=== PATIENT | female | born 1930 | race Caucasian/White ===

== ENCOUNTER 2018-05-09 11:38 | Inpatient (IN) ==
--- NOTE | 2018-05-09 12:26 | Emergency Department Note ---
Disposition Clinical Impression: Cellulitis, Knee swelling, Prepatellar abscess Disposition: Admitted As Inpatient Condition: Good Extremity Problem HPI - General Chief complaint: ED Extremity Problem,Nontraumatic Stated complaint: Cellulitis left leg Time Seen by Provider: 05/09/18 11:41 - History of Present Illness Pain Scale: 1 - Related Data Home Medications Medication Instructions Recorded Confirmed Digoxin [Lanoxin] 0.125 mg PO DAILY 08/22/16 05/09/18 Furosemide [Lasix] 20 mg PO DAILY 08/22/16 05/09/18 Losartan/HCTZ [Hyzaar 50-12.5 1 tab PO DAILY 08/22/16 05/09/18 Tablet] Metoprolol XL (24 HR) Succ [Toprol 150 mg PO DAILY 08/22/16 05/09/18 Xl] Potassium Chloride [Klor-Con 10] 10 meq PO DAILY 08/22/16 05/09/18 Tramadol HCl [Ultram] 50 mg PO BID PRN 08/22/16 05/09/18 Vit A/C/E AC/Znox/Cupric Oxide 1 each PO DAILY 09/05/16 05/09/18 [Eye Vitamin-Minerals Tablet] Warfarin Sodium [Coumadin] 6 mg PO 1800 05/09/18 05/09/18 Previous Rx's Medication Instructions Recorded Acetaminophen [Tylenol] 1,000 mg PO Q6HR PRN #0 tablet 09/05/16 Clindamycin [Cleocin] 300 mg PO TID 7 Days capsule 04/26/18 Allergies Allergy/AdvReac Type Severity Reaction Status Date / Time Penicillins AdvReac Rash Verified 05/09/18 13:57 spironolactone AdvReac Rash Verified 05/09/18 13:57 [From Aldactone] Past Medical History - Past Medical History Medical history: Reports: arthritis, CHF, coronary artery disease, GERD, glaucoma, hypertension Surgical history: Reports: , orthopedic, other Psychiatric history: Reports: no psych history - Social History Smoking Status: Never smoker Smokeless Tobacco Status: No Alcohol use: Reports: none Drug use: Reports: none Course Vital Signs Temperature 97.7 F 05/09/18 11:40 Pulse Rate 55 05/09/18 11:40 Respiratory Rate 16 05/09/18 11:40 Blood Pressure 143/76 05/09/18 11:40 O2 Sat by Pulse Oximetry 99 05/09/18 11:40 Temperature 97.8 F 05/09/18 16:47 Pulse Rate 61 05/09/18 16:47 Respiratory Rate 16 05/09/18 16:47 Blood Pressure 169/72 05/09/18 16:47 O2 Sat by Pulse Oximetry 97 05/09/18 16:47 Oxygen Delivery Oxygen Delivery Room Air Extremity Problem, Nontraumati - Lab Data Result diagrams: 05/09/18 12:16 05/09/18 12:16 Lab Results 05/09/18 05/09/18 05/09/18 Range/Units 12:16 12:16 12:16 WBC 7.7 (4.3-11.1) K/mcL RBC 3.06 L (3.82-4.97) M/mcL Hgb 9.7 L (11.5-15.4) g/dL Hct 29.4 L (35.3-44.9) % MCV 96.1 (83.0-100.0) fL MCH 31.7 (28.0-33.3) pg MCHC 33.0 (31.6-35.5) g/dL RDW 14.6 H (11.5-14.5) % Plt Count 312 (140-400) K/mcL MPV 9.3 L (9.4-12.4) fL Immature Gran % 0.4 (0-4) % Seg Neutrophils % 62.0 % Lymphocytes % 17.0 % Monocytes % 14.0 % Eosinophils % 6.2 % Basophils % 0.4 % Neutrophils # 4.8 (1.6-8.9) K/mcL Lymphocytes # 1.3 (0.6-4.6) K/mcL Monocytes # 1.1 (0.0-1.3) K/mcL Eosinophils # 0.5 (0.0-0.6) K/mcL Basophils # 0.0 (0.0-0.2) K/mcL ESR (0-15) mm/hr PT 21.9 H (9.4-12.1) Seconds INR 1.9 Sodium 136 (136-145) mEq/L Potassium 3.7 (3.5-5.1) mEq/L Chloride 101 (98-107) mEq/L Carbon Dioxide 29 (23-29) mEq/L BUN 17 (8-23) mg/dL Creatinine 0.77 (0.60-1.20) mg/dL Est GFR ( Amer) > 60 (> 60) Est GFR (Non-Af Amer) > 60 (> 60) BUN/Creatinine Ratio 22 (6-26) Glucose 102 (70-105) mg/dL Calculated Osmolality 284 (280-300) Calcium 9.6 (8.6-10.3) mg/dL C-Reactive Protein 27 H (Less than 10) mg/L Digoxin (0.8-2.0) ng/mL 05/09/18 05/09/18 Range/Units 12:16 12:16 WBC (4.3-11.1) K/mcL RBC (3.82-4.97) M/mcL Hgb (11.5-15.4) g/dL Hct (35.3-44.9) % MCV (83.0-100.0) fL MCH (28.0-33.3) pg MCHC (31.6-35.5) g/dL RDW (11.5-14.5) % Plt Count (140-400) K/mcL MPV (9.4-12.4) fL Immature Gran % (0-4) % Seg Neutrophils % % Lymphocytes % % Monocytes % % Eosinophils % % Basophils % % Neutrophils # (1.6-8.9) K/mcL Lymphocytes # (0.6-4.6) K/mcL Monocytes # (0.0-1.3) K/mcL Eosinophils # (0.0-0.6) K/mcL Basophils # (0.0-0.2) K/mcL ESR 91 H (0-15) mm/hr PT (9.4-12.1) Seconds INR Sodium (136-145) mEq/L Potassium (3.5-5.1) mEq/L Chloride (98-107) mEq/L Carbon Dioxide (23-29) mEq/L BUN (8-23) mg/dL Creatinine (0.60-1.20) mg/dL Est GFR ( Amer) (> 60) Est GFR (Non-Af Amer) (> 60) BUN/Creatinine Ratio (6-26) Glucose (70-105) mg/dL Calculated Osmolality (280-300) Calcium (8.6-10.3) mg/dL C-Reactive Protein (Less than 10) mg/L Digoxin 1.1 (0.8-2.0) ng/mL Attestation Statement - Attestation Attestation: I examined this patient and my medical decision making was reviewed with the Resident Physician. I agree with the documented findings, disposition and treatment plan as described except to the extent set forth below. We independently had [id number] contact with the patient. Resident Phoenix Finn Patient referred from orthopedic outpatient visit for evaluation of prepatellar abscess drainage as well as concern for cellulitis in the left lower extremity. Patient had a previous fall on Coumadin with elevated INR and significant leg swelling. Patient's leg is now red from the mid thigh to the lower leg. It is not erythematous and only has minimal blanching. Patient does not have any fevers chills or systemic symptoms. She is also complaining of a rash to the but which is multifocal in nature and possibly more consistent with a dermatitis or candidal infection. The patient does have multiple allergies to medications as well as 2 different tapes. Patient has been keeping her leg wrapped with a [place] wrap and before that a different sort of wrap. Family is concerned about possible allergic reaction which given her lack of erythema to the leg is a possibility. The prepatellar bursa itself does appear to be inflamed and have some mild purulent drainage. The area had previously been diagnosed with blister over this area. Please see resident note for further details and disposition.
[2018-05-09 12:40] LABS: Basophils % 0.4 %; Eosinophils # 0.5 K/mcL (0.0-0.6); Eosinophils % 6.2 %; Hematocrit 29.4 % (35.3-44.9); Hemoglobin 9.7 g/dL (11.5-15.4); Immature Granulocytes % 0.4 % (0-4); Lymphocytes # 1.3 K/mcL (0.6-4.6); Mean Corpuscular Hemoglobin 31.7 pg (28.0-33.3); Mean Corpuscular Volume 96.1 fL (83.0-100.0); Mean Platelet Volume 9.3 fL (9.4-12.4); Monocytes # 1.1 K/mcL (0.0-1.3); Neutrophils # 4.8 K/mcL (1.6-8.9); Platelet Count 312 K/mcL (140-400); Red Blood Count 3.06 M/mcL (3.82-4.97); Red Cell Distribution Width 14.6 % (11.5-14.5)
[2018-05-09 12:47] LABS: INR 1.9; Prothrombin Time 21.9 Seconds (9.4-12.1)
[2018-05-09 12:54] LABS: BUN/Creatinine Ratio 22 (6-26); Blood Urea Nitrogen 17 mg/dL (8-23); Calcium 9.6 mg/dL (8.6-10.3); Carbon Dioxide 29 mEq/L (23-29); Chloride 101 mEq/L (98-107); Glucose 102 mg/dL (70-105); Osmolality,Calculated 284 (280-300); Potassium 3.7 mEq/L (3.5-5.1); Sodium 136 mEq/L (136-145); eGFR For Non-African Americans > 60 (> 60)
--- NOTE | 2018-05-09 13:04 | Emergency Department Note ---
Disposition Clinical Impression: Knee swelling, Prepatellar abscess Cellulitis Qualifiers: Site of cellulitis: extremity Site of cellulitis of extremity: lower extremity Laterality: left Qualified Code(s): L03.116 - Cellulitis of left lower limb Disposition: Admitted As Inpatient Condition: Good Referrals: Cole Joya MD [Primary Care Provider] - Forms: ED Satisfaction Letter Time of Disposition: 13:59 General Adult HPI - General Chief complaint: ED Extremity Problem,Nontraumatic Stated complaint: Cellulitis left leg Time Seen by Provider: 05/09/18 11:41 Source: patient, family Limitations: no limitations Nursing Notes Reviewed: Yes Vital Signs Reviewed: Yes - History of Present Illness HPI Narrative: 87-year-old female presenting for left knee swelling and concern for infection. Patient states approximately 2 weeks ago she was seen here for an open fracture of the left finger. This was due to a fall. She was also diagnosed with cellulitis and placed on clindamycin. Patient went to orthopedics for a follow-up for her left finger when they noticed the left knee was very swollen, red and draining. They were concerned about possible infection and possible need for drainage and sent her here for further evaluation and admission. Patient denies any other concerns or complaints. States she has been able to walk on the knee without difficulty. Denies any fevers, chest pain, shortness of breath, nausea or abdominal pain. Pain Scale: 1 - Related Data Home Medications Medication Instructions Recorded Confirmed Digoxin [Lanoxin] 0.125 mg PO DAILY 08/22/16 09/05/16 Furosemide [Lasix] 20 mg PO DAILY 08/22/16 09/05/16 Losartan/HCTZ [Hyzaar 50-12.5 1 tab PO DAILY 08/22/16 09/05/16 Tablet] Metoprolol XL (24 HR) Succ [Toprol 150 mg PO DAILY 08/22/16 09/05/16 Xl] Potassium Chloride [Klor-Con 10] 10 meq PO DAILY 08/22/16 09/05/16 Tramadol HCl [Ultram] 50 mg PO BID PRN 08/22/16 09/05/16 Warfarin [Coumadin] 5 mg PO 1800 08/22/16 09/05/16 Vit A/C/E AC/Znox/Cupric Oxide 1 each PO DAILY 01/16/17 01/16/17 [Eye Vitamin-Minerals Tablet] Previous Rx's Medication Instructions Recorded Acetaminophen [Tylenol] 1,000 mg PO Q6HR PRN #0 tablet 09/05/16 HYDROcodone/Acet 5/325 mg [[place] 1 tab PO Q6HR PRN #15 tablet 10/14/16 5-325 mg] Clindamycin [Cleocin] 300 mg PO TID 7 Days capsule 04/26/18 HYDROcodone/Acet 5/325 mg [[place] 1 tab PO Q6H PRN 4 Days #15 tab 04/26/18 5-325 mg] Allergies Allergy/AdvReac Type Severity Reaction Status Date / Time Penicillins AdvReac Rash Verified 05/09/18 13:57 spironolactone AdvReac Rash Verified 05/09/18 13:57 [From Aldactone] All systems ED: reviewed and negative except as stated. Constitutional: Denies: fever, chills, weakness Eyes: Reports: as per HPI ENT ED: Reports: as per HPI Cardiovascular: Denies: chest pain, palpitations Respiratory: Denies: cough, dyspnea, wheezes Gastrointestinal: Denies: abdominal pain, nausea, vomiting Genitourinary: Reports: as per HPI Musculoskeletal: Reports: as per HPI Integumentary: Reports: as per HPI Neurological: Denies: weakness, numbness, paresthesias Psychiatric: Reports: as per HPI Endocrine: Reports: as per HPI Hematological/Lymphatic: Reports: as per HPI Allergic/Immunologic: Reports: as per HPI Past Medical History - Past Medical History Attestation: Yes The following information was validated with the patient. Medical history: Reports: arthritis, CHF, coronary artery disease, GERD, glaucoma, hypertension Surgical history: Reports: , orthopedic, other Psychiatric history: Reports: no psych history - Social History Smoking Status: Never smoker Smokeless Tobacco Status: No Alcohol use: Reports: none Drug use: Reports: none Physical Exam - General Limitations: no limitations General appearance: alert, in no apparent distress - Head Head exam: atraumatic, normocephalic, normal inspection - Eye Eye exam: Present: normal appearance. Absent: scleral icterus, conjunctival injection - ENT ENT exam: normal exam, mucous membranes moist - Neck Neck exam: Present: normal inspection, full ROM. Absent: tenderness, meningismus - Chest Chest inspection: Present: normal inspection, symmetric chest wall rise. Absent : tenderness, rash - Respiratory Respiratory exam: Present: normal lung sounds bilaterally. Absent: respiratory distress, wheezes - Cardiovascular Cardiovascular exam: Present: normal rhythm, normal heart sounds - Abdominal Exam Abdominal exam: Present: soft, Non-Tender. Absent: distention, guarding, rebound - Extremities Exam Extremities exam: Present: full ROM, other (Bilateral lower extremities neurovascularly intact. Left knee swollen, red with multiple open wounds and active serosanguineous drainage. Redness radiates from the down the left lower extremity. It is blanchable. Nontender and not warm to the touch.) - Neurological Exam Neurological exam: Present: alert, oriented X3 - Psychiatric Psychiatric exam: Present: normal affect, normal mood - Skin Skin exam: Present: warm, intact Course Course Narrative: 87-year-old female sent by orthopedics for admission for possible drainage of the left knee. Patient is alert and oriented 3 in the room with stable vital signs. Afebrile. Physical exam shows a swollen left knee with serous a nearest drainage and multiple superficial abrasions. Basic laboratory analysis including CBC, BMP, blood cultures, PT/INR and digoxin level obtained. Patient is currently on Coumadin. I spoke with Dr. Medel who sent the patient over. He would like us to also add an ESR and CRP. Due to concern for cellulitis we will also provide the patient 1 dose of vancomycin in the emergency department. Patient disposition most likely admission the pending results. Patient agrees with this plan. - Reevaluation(s) Reevaluation #1: Patient's laboratory analysis shows elevated ESR but otherwise at baseline for patient. Patient remains alert and oriented times dining room table vital signs. I spoke with interventional radiology who is aware of the patient will like us to place a consult the computer. They will evaluate the patient after they are finished the procedure they are in now. I spoke with the hospitalist recreational aide Dr. Cole who agrees to accept the patient at this time. Vital Signs Temperature 97.7 F 05/09/18 11:40 Pulse Rate 55 05/09/18 11:40 Respiratory Rate 16 05/09/18 11:40 Blood Pressure 143/76 05/09/18 11:40 O2 Sat by Pulse Oximetry 99 05/09/18 11:40 Temperature 97.7 F 05/09/18 12:08 Pulse Rate 68 05/09/18 13:28 Respiratory Rate 18 05/09/18 13:28 Blood Pressure 131/55 05/09/18 13:28 O2 Sat by Pulse Oximetry 97 05/09/18 13:28 Oxygen Delivery Oxygen Delivery Room Air Medical Decision Making - Lab Data Result diagrams: 05/09/18 12:16 05/09/18 12:16 Lab Results 05/09/18 05/09/18 05/09/18 Range/Units 12:16 12:16 12:16 WBC 7.7 (4.3-11.1) K/mcL RBC 3.06 L (3.82-4.97) M/mcL Hgb 9.7 L (11.5-15.4) g/dL Hct 29.4 L (35.3-44.9) % MCV 96.1 (83.0-100.0) fL MCH 31.7 (28.0-33.3) pg MCHC 33.0 (31.6-35.5) g/dL RDW 14.6 H (11.5-14.5) % Plt Count 312 (140-400) K/mcL MPV 9.3 L (9.4-12.4) fL Immature Gran % 0.4 (0-4) % Seg Neutrophils % 62.0 % Lymphocytes % 17.0 % Monocytes % 14.0 % Eosinophils % 6.2 % Basophils % 0.4 % Neutrophils # 4.8 (1.6-8.9) K/mcL Lymphocytes # 1.3 (0.6-4.6) K/mcL Monocytes # 1.1 (0.0-1.3) K/mcL Eosinophils # 0.5 (0.0-0.6) K/mcL Basophils # 0.0 (0.0-0.2) K/mcL ESR (0-15) mm/hr PT 21.9 H (9.4-12.1) Seconds INR 1.9 Sodium 136 (136-145) mEq/L Potassium 3.7 (3.5-5.1) mEq/L Chloride 101 (98-107) mEq/L Carbon Dioxide 29 (23-29) mEq/L BUN 17 (8-23) mg/dL Creatinine 0.77 (0.60-1.20) mg/dL Est GFR ( Amer) > 60 (> 60) Est GFR (Non-Af Amer) > 60 (> 60) BUN/Creatinine Ratio 22 (6-26) Glucose 102 (70-105) mg/dL Calculated Osmolality 284 (280-300) Calcium 9.6 (8.6-10.3) mg/dL Digoxin (0.8-2.0) ng/mL 05/09/18 05/09/18 Range/Units 12:16 12:16 WBC (4.3-11.1) K/mcL RBC (3.82-4.97) M/mcL Hgb (11.5-15.4) g/dL Hct (35.3-44.9) % MCV (83.0-100.0) fL MCH (28.0-33.3) pg MCHC (31.6-35.5) g/dL RDW (11.5-14.5) % Plt Count (140-400) K/mcL MPV (9.4-12.4) fL Immature Gran % (0-4) % Seg Neutrophils % % Lymphocytes % % Monocytes % % Eosinophils % % Basophils % % Neutrophils # (1.6-8.9) K/mcL Lymphocytes # (0.6-4.6) K/mcL Monocytes # (0.0-1.3) K/mcL Eosinophils # (0.0-0.6) K/mcL Basophils # (0.0-0.2) K/mcL ESR 91 H (0-15) mm/hr PT (9.4-12.1) Seconds INR Sodium (136-145) mEq/L Potassium (3.5-5.1) mEq/L Chloride (98-107) mEq/L Carbon Dioxide (23-29) mEq/L BUN (8-23) mg/dL Creatinine (0.60-1.20) mg/dL Est GFR ( Amer) (> 60) Est GFR (Non-Af Amer) (> 60) BUN/Creatinine Ratio (6-26) Glucose (70-105) mg/dL Calculated Osmolality (280-300) Calcium (8.6-10.3) mg/dL Digoxin 1.1 (0.8-2.0) ng/mL
[2018-05-09 14:57] LABS: C-Reactive Protein 27 mg/L (Less than 10)
[2018-05-09] MEDS ORDERED: Naloxone 0.4 MG/ML INJ IVP PRN (16:58)
--- NOTE | 2018-05-09 17:04 | Internal Med History&Physical ---
Date of Encounter: 05/09/18 Time of Encounter: 16:45 Internal Medicine - H&P: HPI Chief complaint: Left leg redness and swelling Admitted From: Emergency Dept History of present illness: Ms. Granados is a 87 year old female patient with history of coronary artery disease,, atrial fibrillation CHF, hypertension who was sent to the ER by her orthopedics doctor for swelling and redness involving the left knee and [place]acon. Patient had fallen earlier this month and developed swelling and hematoma in her left knee. She also injured her left ring finger and was being seen at orthopedics clinic for that. One week back she noticed some redness around her knee and was placed on antibiotics. Despite taking her antibiotics as prescribed, her swelling continued to worsen. She has also been developing blisters that were draining around her left knee. As such she was sent to the ER for evaluation. She denies any fevers or chills. She does have some discomfort and pain in her left knee and chacon. Patient was on clindamycin as outpatient and has been taking it as prescribed. Past Med Surg Social Fam HX - Past Medical History Attestation: Yes The following information was validated with the patient. Source: patient Medical history: arthritis, atrial fibrillation, CHF, coronary artery disease, GERD, glaucoma, hypertension Additional medical history: Paroxysmal atrial fibrillation. anticiagulant custodial use. open nondisplaced fracture of middle phalanx of left ring finger. displaced fracture of proximal phalanx of left middle finger Psychiatric history: no psych history - Past Surgical History Surgical History: , orthopedic, other Additional surgical history: ankle surgery. left eye. heart cath - Social History Smoking Status: Never smoker Smokeless Tobacco Status: No Alcohol use: none Drug use: none Internal Medicine - H&P: Meds Digoxin [Lanoxin] 0.125 mg PO DAILY 08/22/16 [History] Furosemide [Lasix] 20 mg PO DAILY 08/22/16 [History] Losartan/HCTZ [Hyzaar 50-12.5 Tablet] 1 tab PO DAILY 08/22/16 [History] Metoprolol XL (24 HR) Succ [Toprol Xl] 150 mg PO DAILY 08/22/16 [History] Potassium Chloride [Klor-Con 10] 10 meq PO DAILY 08/22/16 [History] Tramadol HCl [Ultram] 50 mg PO BID PRN 08/22/16 [History] Acetaminophen [Tylenol] 1,000 mg PO Q6HR PRN #0 tablet 09/05/16 [Rx] Vit A/C/E AC/Znox/Cupric Oxide [Eye Vitamin-Minerals Tablet] 1 each PO DAILY [History] Clindamycin [Cleocin] 300 mg PO TID 7 Days capsule 04/26/18 [Rx] Warfarin Sodium [Coumadin] 6 mg PO 1800 05/09/18 [History] 3 Allergy/AdvReac Type Severity Reaction Status Date / Time Penicillins AdvReac Rash Verified 05/09/18 13:57 spironolactone AdvReac Rash Verified 05/09/18 13:57 [From Aldactone] All Systems PM: A 10-system review of systems was performed and is negative for pertinent findings except as documented above in the HPI. - Constitutional Constitutional: no chills, no fever(s), no night sweats - EENT Eyes: no change in vision, no discharge, no pain, no photophobia Ears: no ear discharge, no ear pain, no tinnitus Nose, mouth and throat: no dysphagia, no nasal discharge, no neck pain, no sore throat - Cardiovascular Cardiovascular ROS IM: no chest pain, no diaphoresis, no dyspnea, no lightheadedness, no palpitations, no syncope - Respiratory Respiratory: no cough, no dyspnea, no wheezing, no excessive phlegm production - Gastrointestinal Gastrointestinal: no abdominal pain, no diarrhea, no hematemesis, no hematochezia, no melena, no nausea, no vomiting - Genitourinary Genitourinary: no change in urinary stream, no dysuria, no flank pain, no hematuria - Musculoskeletal Musculoskeletal ROS IM: joint swelling, no numbness, no tingling - Integumentary Integumentary IM: erythema, no rash, no unusual bruising - Neurological Neurological ROS: no confusion, no convulsions, no focal weakness, no numbness, no tingling, no tremor(s) - Hematologic/Lymphatic Hematologic/Lymphatic: no easy bruising - Constitutional Vitals: Temp Pulse Resp BP Pulse Ox 97.8 F 61 16 169/72 97 05/09/18 16:47 05/09/18 16:47 05/09/18 16:47 05/09/18 16:47 05/09/18 16:47 General appearance: Present: cooperative, A&O X 3, answers questions appropriately Exam: . - Neck Neck exam general surgery: Present: supple, trachea midline. Absent: lymphadenopathy - Respiratory Respiratory exam: Present: CTAB. Absent: accessory muscle use, rales, rhonchi, wheezes - Cardiovascular Cardiovascular exam: Present: irregular rhythm, +S1, +S2. Absent: diastolic murmur, gallop, rubs, systolic murmur - GI/Abdominal GI/Abdominal exam: Present: normal bowel sounds, soft, no peritoneal signs. Absent: distended, tenderness - Extremities Exam Extremities exam: Present: joint swelling (Left knee), warm, radial pulses palpable and symmetrical. Absent: calf tenderness, cyanotic, pedal edema - Neurological Exam Neurological exam: Present: CN II-XII intact, oriented X3, no focal deficits. Absent: facial droop, speech deficit - Skin Skin exam: Present: dry, erythema (Erythema involving the left lower extremity extending from the lower part of the thigh down to the ankle), intact Internal Med - H&P Results - Labs CBC & Chem 7: 05/09/18 12:16 05/09/18 12:16 - Assessment and plan (1) Cellulitis Current Visit: Yes Status: Acute Assessment and plan: Cellulitis of the left lower extremity. Failed outpatient antibiotic treatment. Will place patient in the hospital and treat with intravenous antibiotics. Orthopedics has been consulted. We will follow recommendations. Moderate risk for complications. Qualifiers: Site of cellulitis: extremity Site of cellulitis of extremity: lower extremity Laterality: left Qualified Code(s): L03.116 - Cellulitis of left lower limb (2) Atrial fibrillation Current Visit: Yes Status: Chronic Assessment and plan: Rate controlled. Continue digoxin. Patient is on Coumadin. Will hold Coumadin for now and resume after I&D. INR is 1.9. Qualifiers: Atrial fibrillation type: chronic Qualified Code(s): I48.2 - Chronic atrial fibrillation (3) Coronary artery disease Current Visit: Yes Status: Chronic Assessment and plan: Continue home medications. Not having any chest pain at this time Qualifiers: Coronary Disease-Associated Artery/Lesion type: [place] artery [place] vs. transplanted heart: [place] heart Associated angina: without angina Qualified Code(s): I25.10 - Atherosclerotic heart disease of [place] coronary artery without angina pectoris (4) Knee swelling Current Visit: Yes Status: Acute Assessment and plan: Left knee swelling with hematoma per CT scan done earlier this month. Discussed with interventional radiology. Recommend another CT scan to look for Evolution of hematoma and also location of abscess. They recommend incision and drainage of the abscesses closer to the skin. (5) Displaced fracture of phalanx of left ring finger Current Visit: Yes Status: Acute Assessment and plan: Orthopedics will follow patient during her hospital stay here. Qualifiers: Encounter type: initial encounter Fracture type: open Phalanx: middle Qualified Code(s): S62.625B - Displaced fracture of middle phalanx of left ring finger, initial encounter for open fracture - Time Spent With Patient Total time spent is greater than 50% in coordination of care (as documented) at patient's floor/unit and/or counseling patient:
[2018-05-09] MEDS: Cefepime HCl 2,000 MG in Water for inj. (sterile) 20 ML 20 ML IVP SCH (18:21)
[2018-05-09] MEDS: traMADol 50 MG TABLET PO PRN ×2 (18:22→21:35)
[2018-05-09] MEDS: Acetaminophen 325 MG TABLET PO PRN (18:25)
[2018-05-09] MEDS: Lactobacillus 1 EACH CAP.SPRINK PO SCH (21:35)
[2018-05-10] MEDS: Cefepime HCl 2,000 MG in Water for inj. (sterile) 20 ML 20 ML IVP SCH (06:24)
[2018-05-10 07:02] LABS: BUN/Creatinine Ratio 21 (6-26); Blood Urea Nitrogen 15 mg/dL (8-23); Carbon Dioxide 24 mEq/L (23-29); Chloride 106 mEq/L (98-107); Glucose 89 mg/dL (70-105); Osmolality,Calculated 288 (280-300); Potassium 3.9 mEq/L (3.5-5.1); Sodium 139 mEq/L (136-145); eGFR For Non-African Americans > 60 (> 60)
[2018-05-10 08:17] LABS: Basophils % 0.1 %; Eosinophils # 0.4 K/mcL (0.0-0.6); Eosinophils % 5.5 %; Hematocrit 25.9 % (35.3-44.9); Hemoglobin 8.7 g/dL (11.5-15.4); Immature Granulocytes % 0.3 % (0-4); Lymphocytes # 1.4 K/mcL (0.6-4.6); Lymphocytes % 19.1 %; Mean Corpuscular HGB Conc 33.6 g/dL (31.6-35.5); Mean Corpuscular Volume 95.2 fL (83.0-100.0); Mean Platelet Volume 9.7 fL (9.4-12.4); Monocytes # 0.8 K/mcL (0.0-1.3); Monocytes % 10.6 %; Neutrophils # 4.8 K/mcL (1.6-8.9); Platelet Count 283 K/mcL (140-400); Red Blood Count 2.72 M/mcL (3.82-4.97); Red Cell Distribution Width 14.7 % (11.5-14.5); Segmented Neutrophils % 64.4 %
[2018-05-10] MEDS: Losartan/HCTZ 50-12.5 TABLET PO SCH (08:22)
[2018-05-10] MEDS: Lactobacillus 1 EACH CAP.SPRINK PO SCH ×2 (08:23→22:20)
[2018-05-10] MEDS: *HR* Digoxin 0.125 MG TABLET PO SCH (08:23)
[2018-05-10] MEDS: Metoprolol XL (24 HR) Succ 50 MG TAB.ER.24H PO SCH (08:23)
[2018-05-10] MEDS: (Vit A/C/E Ac/Znox/Cupric Oxide [Eye Vitamin-Minerals) PO SCH (08:23)
[2018-05-10] MEDS: Furosemide 20 MG TABLET PO SCH (08:23)
--- NOTE | 2018-05-10 10:04 | Internal Med Progress Note ---
Hospitalist Progress Note - Encounter Date of Encounter: 05/10/18 Time of Encounter: 10:02 - Subjective Interval History: Patient developed a rash overnight after she received antibiotics. No reported fever. No chills or night sweats. No nausea or vomiting. She continues to have swelling and redness in her left knee and leg. - Exam Vitals: Temp Pulse Resp BP Pulse Ox 99.2 F 66 12 146/73 96 05/10/18 08:35 05/10/18 08:35 05/10/18 08:35 05/10/18 08:35 05/10/18 08:35 Exam: General: Patient is alert, no acute distress, oriented x 3 Respiratory: Good respiratory effort. Normal breath sounds. No wheezing or crackles. Cardiovascular: Irregularly irregular rhythm. s1 and s2 normal No pedal edema Abdomen: Abdomen is soft, nontender. Bowel sounds are present Musculoskeletal: Spontaneously moving all extremities , swelling over the left knee. Erythema is present extending from the lower thigh to the ankle but swelling over the left lower leg appears to be improving. Skin: Erythematous described above. Patient also has urticaria involving her face chest and extremities. Neuro: Alert oriented x 3 normal cranial nerves, no focal deficits - Assessment and Plan (1) Cellulitis Current Visit: Yes Status: Acute Assessment and Plan: With left knee swelling. Said orthopedics following. Will continue vancomycin. Patient had adverse reaction to cefepime. Will stop cefepime and place patient on Levaquin instead to cover gram-negative bacteria. (2) Atrial fibrillation Current Visit: Yes Status: Chronic Assessment and Plan: Remains in atrial fibrillation. Holding Coumadin for now in anticipation for surgical procedure on the left knee. Heart rate is controlled. (3) Coronary artery disease Current Visit: Yes Status: Chronic Assessment and Plan: Continue home medications. Patient is not currently on any aspirin. Continue beta paula. (4) Knee swelling Current Visit: Yes Status: Acute Assessment and Plan: Due to hematoma. CT scan of the knee done yesterday shows slight increase in size of hematoma. Orthopedics following. (5) Displaced fracture of phalanx of left ring finger Current Visit: Yes Status: Acute Assessment and Plan: Supportive care. Follow up with orthopedics after discharge. (6) Anemia Current Visit: Yes Status: Acute Assessment and Plan: Hemoglobin 8.7 today. We will continue to monitor. Most likely related to bleeding into left knee with underlying chronic anemia. We will check iron, B12 and folic acid levels. (7) Congestive heart failure Current Visit: Yes Status: Chronic Assessment and Plan: Patient reports chronic history of congestive heart failure. Specificity unable to be determined. Continue Lasix. (8) Traumatic hematoma of left knee Current Visit: Yes Status: Acute Assessment and Plan: Management as above. DVT Prophylaxis: With subcutaneous heparin - Time Spent with Patient Total time spent is greater than 50% in coordination of care (as documented) at patient's floor/unit and/or counseling patient: Internal Medicine: Result - Labs CBC & Chem 7: 05/10/18 05:21 05/10/18 05:21 Labs: Short CBC 05/10/18 Range/Units 05:21 WBC 7.4 (4.3-11.1) K/mcL Hgb 8.7 L (11.5-15.4) g/dL Hct 25.9 L (35.3-44.9) % Plt Count 283 (140-400) K/mcL Neutrophils # 4.8 (1.6-8.9) K/mcL BMP 05/10/18 05:21 Sodium 139 Potassium 3.9 Chloride 106 Carbon Dioxide 24 BUN 15 Creatinine 0.70 Glucose 89 Calcium 9.0 - ABG Interpretation ABG results: PT/INR, D-dimer PT 21.9 Seconds (9.4-12.1) H 05/09/18 12:16 - Impressions Impressions Knee CT 05/09/18 16:57 IMPRESSION: 1. Large anteromedial probable subcutaneous hematoma slightly increased in size compared with 04/26/2018. 2. Diffuse nonspecific subcutaneous edema. 3. No acute osseous abnormality. D/ / Bart Santoyo MD / Bart Santoyo MD Interpreting Provider: Bart Santoyo MD Consult Discharge Plan - Plan Referrals: Cole Joya MD [Primary Care Provider] - (1) Cellulitis Qualifiers: Site of cellulitis: extremity Site of cellulitis of extremity: lower extremity Laterality: left Qualified Code(s): L03.116 - Cellulitis of left lower limb (2) Atrial fibrillation Qualifiers: Atrial fibrillation type: chronic Qualified Code(s): I48.2 - Chronic atrial fibrillation (3) Coronary artery disease Qualifiers: Coronary Disease-Associated Artery/Lesion type: [place] artery [place] vs. transplanted heart: [place] heart Associated angina: without angina Qualified Code(s): I25.10 - Atherosclerotic heart disease of [place] coronary artery without angina pectoris (5) Displaced fracture of phalanx of left ring finger Qualifiers: Encounter type: initial encounter Fracture type: open Phalanx: middle Qualified Code(s): S62.625B - Displaced fracture of middle phalanx of left ring finger, initial encounter for open fracture (6) Anemia Qualifiers: Anemia type: other cause Other causes of anemia: acute posthemorrhagic Qualified Code(s): D62 - Acute posthemorrhagic anemia (7) Congestive heart failure Qualifiers: Heart failure type: unspecified Heart failure chronicity: unspecified Qualified Code(s): I50.9 - Heart failure, unspecified (8) Traumatic hematoma of left knee Qualifiers: Encounter type: subsequent encounter Qualified Code(s): S80.02XD - Contusion of left knee, subsequent encounter
[2018-05-10] MEDS: traMADol 50 MG TABLET PO PRN ×2 (11:34→22:20)
[2018-05-10] MEDS: *HR* Heparin 5,000 UNIT/ML VIAL SQ SCH ×2 (13:53→18:15)
[2018-05-10] MEDS ORDERED: Dexamethasone 4 MG/ML VIAL IVP ONE (16:14)
[2018-05-10] MEDS ORDERED: Aminoglycoside Consult 1 EACH MC ONE (16:59)
[2018-05-10] MEDS ORDERED: Levofloxacin 500 MG/100 ML 500 MG/100 ML BAG IVPB SCH (17:00)
[2018-05-10] MEDS: Famotidine 20 MG/2 ML VIAL IVP SCH (17:01)
--- NOTE | 2018-05-10 18:20 | Orthopedic Consult Note ---
Date of Encounter: 05/10/18 Time of Encounter: 18:19 Assessment and Plan (1) Cellulitis Current Visit: Yes Status: Acute Qualifiers: Site of cellulitis: extremity Site of cellulitis of extremity: lower extremity Laterality: left Qualified Code(s): L03.116 - Cellulitis of left lower limb (2) Traumatic hematoma of left knee Current Visit: Yes Status: Acute The diagnosis and treatment options were discussed with the patient. With the cellulitis overlying the hematoma of the left leg there is concern for an infected hematoma. After obtaining verbal consent the patient, attempted to aspirate the hematoma. The skin was sterilely prepped. An 18-gauge needle was placed laterally through an area of skin with no overlying cellulitis. A minimal amount of fluid was able to be obtained due to clotting of the hematoma. There is no gross purulence within the fluid. Compressive dressing was then placed. Patient tolerated this well with no issues. We will continue to monitor her exam if there is no significant improvement we will plan for open irrigation and debridement of the hematoma of the left leg tomorrow. Nothing by mouth after midnight. Continue antibiotics per the hospitalist. Appreciate medical management. Qualifiers: Encounter type: subsequent encounter Qualified Code(s): S80.02XD - Contusion of left knee, subsequent encounter History of Present Illness HPI: Ms. Granados is a 87 year old female with history of coronary artery disease, atrial fibrillation, CHF, hypertension who fell 2 weeks ago and sustained an open fracture of the left ring finger middle phalanx and a hematoma over her left chacon and knee. She was being seen by Dr. Chaves for both, an I&D and closed reduction was performed several weeks ago for the left ring finger, the hematoma was initially treated with compressive dressings. One week ago was seen in the office for follow-up and was noted to have some redness over her knee and around the hematoma. She was placed on oral clindamycin and followed up yesterday in the office. At that time she was noted to have worsening of her swelling, with blistering of the skin and redness that progressed from the toes to proximal to the knee. She was then admitted to the hospitalist service for IV antibiotics due to failure of oral outpatient therapy. I was then consulted to address the hematoma over her knee and chacon. She denies any fevers or chills. She does have some pain in her left knee and chacon that has improved since starting on the antibiotics. Past Med Surg Social Fam HX - Past Medical History Medical history: arthritis, CHF, coronary artery disease, GERD, glaucoma, hypertension Additional medical history: Paroxysmal atrial fibrillation. anticiagulant termite renewal inspector use. open nondisplaced fracture of middle phalanx of left ring finger. displaced fracture of proximal phalanx of left middle finger Psychiatric history: no psych history - Past Surgical History Surgical History: , orthopedic, other Additional surgical history: ankle surgery. left eye. heart cath - Social History Smoking Status: Never smoker Smokeless Tobacco Status: No Alcohol use: none Drug use: none Medications and Allergies Digoxin [Lanoxin] 0.125 mg PO DAILY 08/22/16 [History] Furosemide [Lasix] 20 mg PO DAILY 08/22/16 [History] Losartan/HCTZ [Hyzaar 50-12.5 Tablet] 1 tab PO DAILY 08/22/16 [History] Metoprolol XL (24 HR) Succ [Toprol Xl] 150 mg PO DAILY 08/22/16 [History] Potassium Chloride [Klor-Con 10] 10 meq PO DAILY 08/22/16 [History] Tramadol HCl [Ultram] 50 mg PO BID PRN 08/22/16 [History] Acetaminophen [Tylenol] 1,000 mg PO Q6HR PRN #0 tablet 09/05/16 [Rx] Vit A/C/E AC/Znox/Cupric Oxide [Eye Vitamin-Minerals Tablet] 1 each PO DAILY [History] Clindamycin [Cleocin] 300 mg PO TID 7 Days capsule 04/26/18 [Rx] Warfarin Sodium [Coumadin] 6 mg PO 1800 05/09/18 [History] 3 Allergy/AdvReac Type Severity Reaction Status Date / Time Penicillins AdvReac Rash Verified 05/09/18 13:57 spironolactone AdvReac Rash Verified 05/09/18 13:57 [From Aldactone] All Systems Reviewed: The remainder of the systems were reviewed and are negative except as noted in the HPI Physical Exam - Constitutional Vitals: Temp Pulse Resp BP Pulse Ox 98.5 F 62 18 116/53 96 05/10/18 14:46 05/10/18 14:46 05/10/18 14:46 05/10/18 14:46 05/10/18 14:46 Exam: Consult Exam: Constitutional -Vitals reviewed -The patient is well developed and well nourished. -Mood is pleasant. Psychiatric -The patient is fully alert and oriented x 3. Respiratory: -Respiratory effort normal Abdomen: -Soft abdomen -Non tender -Non distended: Left upper extremity: -Dressing in place over the left ring finger. No drainage. No erythema or streaking. -Able to make an "OK" sign, cross the index and long fingers, and extend the thumb. -Sensation grossly intact to light touch throughout the median, radial, and ulnar distributions. -Radial pulse is present; Fingers have good capillary refill. Right upper extremity: -No deformities. The overlying skin is intact. No obvious signs of acute trauma. -No tenderness to palpation throughout. -No significant pain with passive motion of the shoulder, elbow, wrist, and fingers within the limits of the bed. -Able to make an "OK" sign, cross the index and long fingers, and extend the thumb. -Sensation grossly intact to light touch throughout the median, radial, and ulnar distributions. -Radial pulse is present; Fingers have good capillary refill. Left lower extremity: -Large area of swelling and ecchymosis over the proximal tibia. Erythema present extending over the area of swelling, slightly diminished from previous demarcation. -No pain with passive motion of the hip, knee, ankle, and toes within the limits of the bed. -Able to dorsiflex and plantarflex the ankle and toes. -Sensation is grossly intact to light touch throughout the sural, saphenous, superficial peroneal, and deep peroneal distributions. -Toes have good capillary refill. Right lower extremity: -No deformities. The overlying skin is intact. No obvious signs of acute trauma. -No tenderness to palpation throughout. -No pain with passive motion of the hip, knee, ankle, and toes within the limits of the bed. -No pain with axial loading of the thigh. -Able to dorsiflex and plantarflex the ankle and toes. -Sensation is grossly intact to light touch throughout the sural, saphenous, superficial peroneal, and deep peroneal distributions. -Toes have good capillary refill. Results - Labs Result Diagrams: 05/10/18 05:21 05/10/18 05:21 Labs: Abnormal lab results RBC 2.72 M/mcL (3.82-4.97) L 05/10/18 05:21 Hgb 8.7 g/dL (11.5-15.4) L 05/10/18 05:21 Hct 25.9 % (35.3-44.9) L 05/10/18 05:21 RDW 14.7 % (11.5-14.5) H 05/10/18 05:21 ESR 91 mm/hr (0-15) H 05/09/18 12:16 PT 21.9 Seconds (9.4-12.1) H 05/09/18 12:16 C-Reactive Protein 27 mg/L (Less than 10) H 05/09/18 12:16 H & H 05/10/18 Range/Units 05:21 Hgb 8.7 L (11.5-15.4) g/dL Hct 25.9 L (35.3-44.9) % All other labs normal. - Diagnostic results Knee CT: report reviewed, image reviewed (Large anteromedial subcutaneous hematoma, increased in size from previous exam) Consult Discharge Plan - Plan Referrals: Cole Joya MD [Primary Care Provider] -
--- NOTE | 2018-05-10 19:11 | Anesthesia Evaluation PreOp ---
Date of Encounter: 05/10/18 Time of Encounter: 21:40 - Past History Planned Operation: LEFT KNEE IRRIGATION DEBRIDEMENT PREPATELLAR BURSA Cardiac History: CHF, HTN, Arrhythmia (PAROXYSMAL AFIB, CHRONIC ANTICOAGULATION) , Other (EF 45%, NON ISCHEMIC CARDIOMYOPATHY) Pulmonary History: Denies Any Significant HX CUSTOM FRAMING SPECIALIST History: Denies Any Significant HX Other Medical History: GERD, Other (OBESITY, BMI 33, ARTHRITIS, ANEMIA) Anesthesia History: No Prior Anesthetic Complications, Past Anesthesia (DHRUV ANKLES, D&C) Alcohol Use: none Drug use: none Medications and Allergies Digoxin [Lanoxin] 0.125 mg PO DAILY 08/22/16 [History] Furosemide [Lasix] 20 mg PO DAILY 08/22/16 [History] Losartan/HCTZ [Hyzaar 50-12.5 Tablet] 1 tab PO DAILY 08/22/16 [History] Metoprolol XL (24 HR) Succ [Toprol Xl] 150 mg PO DAILY 08/22/16 [History] Potassium Chloride [Klor-Con 10] 10 meq PO DAILY 08/22/16 [History] Tramadol HCl [Ultram] 50 mg PO BID PRN 08/22/16 [History] Acetaminophen [Tylenol] 1,000 mg PO Q6HR PRN #0 tablet 09/05/16 [Rx] Vit A/C/E AC/Znox/Cupric Oxide [Eye Vitamin-Minerals Tablet] 1 each PO DAILY [History] Clindamycin [Cleocin] 300 mg PO TID 7 Days capsule 04/26/18 [Rx] Warfarin Sodium [Coumadin] 6 mg PO 1800 05/09/18 [History] 3 Allergy/AdvReac Type Severity Reaction Status Date / Time Penicillins AdvReac Rash Verified 05/09/18 13:57 spironolactone AdvReac Rash Verified 05/09/18 13:57 [From Aldactone] - Meds/Allergy Pre-op Review Medications Reviewed: Yes (LAST COUMADIN 05/07) Allergies Reviewed: Yes (? ADDITIONAL ABX ALLERGY) Beta Blockers on Current Med List: Yes If Beta Blockers taken, Date/Time (Last Dose taken): SEE MAR Anesthesia Results - Labs 05/10/18 05:21 05/10/18 05:21 Laboratory Last Values WBC 7.4 K/mcL (4.3-11.1) 05/10/18 05:21 RBC 2.72 M/mcL (3.82-4.97) L 05/10/18 05:21 Hgb 8.7 g/dL (11.5-15.4) L 05/10/18 05:21 Hct 25.9 % (35.3-44.9) L 05/10/18 05:21 MCV 95.2 fL (83.0-100.0) 05/10/18 05:21 MCH 32.0 pg (28.0-33.3) 05/10/18 05:21 MCHC 33.6 g/dL (31.6-35.5) 05/10/18 05:21 RDW 14.7 % (11.5-14.5) H 05/10/18 05:21 Plt Count 283 K/mcL (140-400) 05/10/18 05:21 MPV 9.7 fL (9.4-12.4) 05/10/18 05:21 Immature Gran % 0.3 % (0-4) 05/10/18 05:21 Seg Neutrophils % 64.4 % 05/10/18 05:21 Lymphocytes % 19.1 % 05/10/18 05:21 Monocytes % 10.6 % 05/10/18 05:21 Eosinophils % 5.5 % 05/10/18 05:21 Basophils % 0.1 % 05/10/18 05:21 Neutrophils # 4.8 K/mcL (1.6-8.9) 05/10/18 05:21 Lymphocytes # 1.4 K/mcL (0.6-4.6) 05/10/18 05:21 Monocytes # 0.8 K/mcL (0.0-1.3) 05/10/18 05:21 Eosinophils # 0.4 K/mcL (0.0-0.6) 05/10/18 05:21 Basophils # 0.0 K/mcL (0.0-0.2) 05/10/18 05:21 ESR 91 mm/hr (0-15) H 05/09/18 12:16 PT 21.9 Seconds (9.4-12.1) H 05/09/18 12:16 INR 1.9 05/09/18 12:16 Sodium 139 mEq/L (136-145) 05/10/18 05:21 Potassium 3.9 mEq/L (3.5-5.1) 05/10/18 05:21 Chloride 106 mEq/L (98-107) 05/10/18 05:21 Carbon Dioxide 24 mEq/L (23-29) 05/10/18 05:21 BUN 15 mg/dL (8-23) 05/10/18 05:21 Creatinine 0.70 mg/dL (0.60-1.20) 05/10/18 05:21 Est GFR ( Amer) > 60 (> 60) 05/10/18 05:21 Est GFR (Non-Af Amer) > 60 (> 60) 05/10/18 05:21 BUN/Creatinine Ratio 21 (6-26) 05/10/18 05:21 Glucose 89 mg/dL (70-105) 05/10/18 05:21 Calculated Osmolality 288 (280-300) 05/10/18 05:21 Calcium 9.0 mg/dL (8.6-10.3) 05/10/18 05:21 C-Reactive Protein 27 mg/L (Less than 10) H 05/09/18 12:16 Digoxin 1.1 ng/mL (0.8-2.0) 05/09/18 12:16 - Imaging Additional studies: TTE 01/2014: Limited echocardiogram to reevaluate LVEF. Normal LV chamber size and wall thickness. Mild global systolic dysfunction, LVEF 45%. Normal right ventricular structure and function. Mild biatrial enlargement. Valves were not evaluated due to limited study. Unable to estimate RVSP due to lack of TR. Compared to prior echocardiogram 10/14/2013, LV function has improved. Anesthesia Exam Vital Signs/O2 Sat, Most Current Temp Pulse Resp BP Pulse Ox 98.5 F 62 18 116/53 96 05/10/18 14:46 05/10/18 14:46 05/10/18 14:46 05/10/18 14:46 05/10/18 14:46 HEIGHT 1.6 m WEIGHT 85 kg BMI 33 NPO (# of Hours): NPO >MN - HEENT Mallampati: II Teeth: Edentulous Denture Type: Upper: Complete, Lower: Complete Oral Opening: Greater than 3 - Cardiac Rhythm: Irregular - Pulmonary Breath Sounds: bilateral Clear Respiratory Effort: Symmetrical - Additional Findings GENERALIZED MACULAR RASH, NEW ONSET AFTER ABX START THIS HOSPITALIZATION. IMPROVING PER PATIENT. Active Medications Acetaminophen (Tylenol) 650 mg PO Q6HR PRN PRN Reason: Mild Pain/Fever Stop: 11/08/18 16:59 Last Admin: 05/09/18 18:25 Dose: 650 mg Digoxin (Lanoxin) 0.125 mg PO DAILY ANTOINETTE Stop: 11/09/18 09:01 Last Admin: 05/10/18 08:23 Dose: 0.125 mg Diphenhydramine HCl (Benadryl) 25 mg IVP Q6HR ANTOINETTE Stop: 11/09/18 18:01 Last Admin: 05/10/18 18:14 Dose: 25 mg Famotidine (Pepcid) 20 mg IVP Q12HR ANTOINETTE PRN Reason: Protocol Stop: 11/09/18 18:01 Last Admin: 05/10/18 17:01 Dose: 20 mg Furosemide (Lasix) 20 mg PO DAILY ANTOINETTE Stop: 11/09/18 09:01 Last Admin: 05/10/18 08:23 Dose: 20 mg HCTZ/Losartan Potassium (Hyzaar 50/12.5) 1 each PO DAILY ANTOINETTE Stop: 11/09/18 09:01 Last Admin: 05/10/18 08:22 Dose: 1 each Heparin Sodium (Porcine) (Heparin) 5,000 unit SQ Q12HCO ANTOINETTE Stop: 11/09/18 08:31 Last Admin: 05/10/18 18:15 Dose: 5,000 unit Levofloxacin/Dextrose (Levaquin Premix 500mg/100ml) 500 mg in 100 mls @ 100 mls /hr IVPB Q24H ANTOINETTE PRN Reason: Protocol Stop: 11/09/18 17:01 Last Admin: 05/10/18 18:14 Dose: 100 mls/hr Metoprolol Succinate (Toprol Xl) 150 mg PO DAILY ANTOINETTE Stop: 11/09/18 09:01 Last Admin: 05/10/18 08:23 Dose: 150 mg Potassium Chloride (Potassium Chloride) 10 meq PO DAILY ANTOINETTE Stop: 11/09/18 09:01 Last Admin: 05/10/18 08:22 Dose: 10 meq Tramadol HCl (Ultram) 50 mg PO BID PRN PRN Reason: Pain Stop: 11/08/18 17:00 Last Admin: 05/10/18 11:34 Dose: 50 mg Anesthesia Assess/Plan ASA Score: 3 Modified Carrie Scale for Level of Consciousness: Cooperative, oriented, and tranquil Anesthetic Plan: General Monitoring Plan: Standard Monitors Recovery Plan: PACU Anes Supervising Prov Stmt: Patient informed and consented. Risks, benefits, and alternatives discussed. Patient wishes to proceed.
[2018-05-10] MEDS: Acetaminophen 325 MG TABLET PO PRN (19:32)
[2018-05-11] MEDS: Famotidine 20 MG/2 ML VIAL IVP SCH (05:22)
[2018-05-11] MEDS: *HR* Heparin 5,000 UNIT/ML VIAL SQ SCH (05:23)
[2018-05-11 06:10] LABS: Basophils % 0.1 %; Eosinophils % 0.1 %; Hematocrit 29.2 % (35.3-44.9); Hemoglobin 9.6 g/dL (11.5-15.4); Immature Granulocytes % 0.4 % (0-4); Lymphocytes # 0.8 K/mcL (0.6-4.6); Lymphocytes % 10.4 %; Mean Corpuscular HGB Conc 32.9 g/dL (31.6-35.5); Mean Corpuscular Hemoglobin 30.7 pg (28.0-33.3); Mean Corpuscular Volume 93.3 fL (83.0-100.0); Mean Platelet Volume 9.3 fL (9.4-12.4); Monocytes # 0.4 K/mcL (0.0-1.3); Monocytes % 5.5 %; Neutrophils # 6.5 K/mcL (1.6-8.9); Platelet Count 318 K/mcL (140-400); Red Blood Count 3.13 M/mcL (3.82-4.97); Red Cell Distribution Width 14.6 % (11.5-14.5); Segmented Neutrophils % 83.5 %
[2018-05-11 06:36] LABS: % Iron Saturation 16 % (15-50); Iron 46 mcg/dL (50-170); Transferrin 209 mg/dL (203-362)
[2018-05-11 06:48] LABS: Folate 13.5 ng/mL (3.0-16.0)
--- NOTE | 2018-05-11 07:40 | Allergy Consult Note ---
Date of Encounter: 05/11/18 Time of Encounter: 07:00 Assessment and Plan (1) Adverse effect of drug or medicament Current Visit: Yes Status: Acute Patient is having a drug rash secondary to cefipime or vancomycin. I am not able to tell from notes exactly when the rash came on and worsened. I am not able to tell at this time if it was the cefipime or vancomycin. She has a history of penicillin allergy so cefipime is certainly possible cause. Due to the severity of her rash and age I would not recommend giving her a cephalosporin or vancomycin at this time. Patient is improving but will have I and D this morning. 1. Avoid vanco, penicillins and cephalosporins 2. Start Zyrtec BID rather than benadryl to avoid any sedation and confusion 3. Continue pepcid BID 4. She will likely need a 5 days taper of prednisone 5. Follow up with me as an outpatient to do penicillin testing Qualifiers: Encounter type: initial encounter Qualified Code(s): T50.905A - Adverse effect of unspecified drugs, medicaments and biological substances, initial encounter (2) Urticarial dermatitis Current Visit: Yes Status: Acute History of Present Illness Consult date: 05/11/18 Reason for consult: Drug allergy Requesting physician: Amie Villalta History of present illness: Patient is an 87 year old female who was admitted for cellulitis of left knee. Patient has a history of penicillin allergy in the last 20 years. She had a rash after the penicillin but does not remember any details. She denies any difficulty breathing at that time. On admission she was given a dose of vanc and tolerated fine. She was then given cefipime on 05/09/18 at 1821 and 05/10 at 0630, vancomycin 05/09 at 1412 and 10/10 at 1416. Patient started with red itchy rash over entire body on evening of 05/09 and then worsened on 05/10. She was given benadryl, steroids and pepcid and she feels much better this morning. Her eyelids were red yesterday but are much better today. She is less itchy as well. She denies any abdominal pain, eye pain or mouth sores. Past Med Surg Social Fam HX - Past Medical History Medical history: arthritis, CHF, coronary artery disease, GERD, glaucoma, hypertension Additional medical history: Paroxysmal atrial fibrillation. anticiagulant shelter use. open nondisplaced fracture of middle phalanx of left ring finger. displaced fracture of proximal phalanx of left middle finger Psychiatric history: no psych history - Past Surgical History Surgical History: , orthopedic, other Additional surgical history: ankle surgery. left eye. heart cath - Social History Smoking Status: Never smoker Smokeless Tobacco Status: No Alcohol use: none Drug use: none Medications and Allergies Digoxin [Lanoxin] 0.125 mg PO DAILY 08/22/16 [History] Furosemide [Lasix] 20 mg PO DAILY 08/22/16 [History] Losartan/HCTZ [Hyzaar 50-12.5 Tablet] 1 tab PO DAILY 08/22/16 [History] Metoprolol XL (24 HR) Succ [Toprol Xl] 150 mg PO DAILY 08/22/16 [History] Potassium Chloride [Klor-Con 10] 10 meq PO DAILY 08/22/16 [History] Tramadol HCl [Ultram] 50 mg PO BID PRN 08/22/16 [History] Acetaminophen [Tylenol] 1,000 mg PO Q6HR PRN #0 tablet 09/05/16 [Rx] Vit A/C/E AC/Znox/Cupric Oxide [Eye Vitamin-Minerals Tablet] 1 each PO DAILY [History] Clindamycin [Cleocin] 300 mg PO TID 7 Days capsule 04/26/18 [Rx] Warfarin Sodium [Coumadin] 6 mg PO 1800 05/09/18 [History] 3 Allergy/AdvReac Type Severity Reaction Status Date / Time Penicillins AdvReac Rash Verified 05/09/18 13:57 spironolactone AdvReac Rash Verified 05/09/18 13:57 [From Aldactone] ROS Allergy All systems PM: reviewed and no additional remarkable complaints except as stated (left knee pain) Allergy Exam Initial Vital Signs Temp Pulse Resp BP Pulse Ox 97.7 F 55 16 143/76 99 05/09/18 11:40 05/09/18 11:40 05/09/18 11:40 05/09/18 11:40 05/09/18 11:40 - General physical appearance well nourished, no distress - Eyes other (no erythema or crusting) - ENT normal nares (dry lips, no mouth ulcers) - Neck no masses - Respiratory normal expansion, normal respiratory effort - Abdomen Abdomen: soft, non tender - Integumentary other (erythematous macules that are scattered on arms legs, face, abdomen, scalp and are confluent on back, right lower arm and a large patch on right upper thigh, left knee is largely swollen with large hematoma with skin breakdown) - Psychiatric oriented to time, oriented to person, speech is normal Results - Labs 05/11/18 05:38 05/10/18 05:21 Abnormal lab results RBC 3.13 M/mcL (3.82-4.97) L 05/11/18 05:38 Hgb 9.6 g/dL (11.5-15.4) L 05/11/18 05:38 Hct 29.2 % (35.3-44.9) L 05/11/18 05:38 RDW 14.6 % (11.5-14.5) H 05/11/18 05:38 MPV 9.3 fL (9.4-12.4) L 05/11/18 05:38 ESR 91 mm/hr (0-15) H 05/09/18 12:16 PT 21.9 Seconds (9.4-12.1) H 05/09/18 12:16 Iron 46 mcg/dL (50-170) L 05/11/18 05:38 C-Reactive Protein 27 mg/L (Less than 10) H 05/09/18 12:16 Diabetes panel 05/10/18 Range/Units 05:21 Calcium 9.0 (8.6-10.3) mg/dL Calcium panel 05/10/18 Range/Units 05:21 Calcium 9.0 (8.6-10.3) mg/dL Pituitary panel 05/10/18 Range/Units 05:21 Calcium 9.0 (8.6-10.3) mg/dL Adrenal panel 05/10/18 Range/Units 05:21 Calcium 9.0 (8.6-10.3) mg/dL All other labs normal. Consult Discharge Plan - Plan Referrals: Cole Joya MD [Primary Care Provider] -
[2018-05-11 08:03] LABS: Ferritin 137 ng/mL (10-120)
[2018-05-11] MEDS: traMADol 50 MG TABLET PO PRN (08:06)
[2018-05-11] MEDS: Metoprolol XL (24 HR) Succ 50 MG TAB.ER.24H PO SCH (08:06)
[2018-05-11] MEDS ORDERED: *HR* FentaNYL (PF) 100 MCG/2 ML VIAL ONE ×2 (08:58→11:45)
[2018-05-11] MEDS ORDERED: *HR* Propofol 200 MG/20 ML VIAL IVP ONE (08:58)
[2018-05-11] MEDS ORDERED: Lidocaine -MPF 2% 2 ML VIAL ONE (08:59)
[2018-05-11] MEDS ORDERED: *HR* Succinylcholine 200 MG/10 ML VIAL IVP ONE (09:00)
[2018-05-11] MEDS ORDERED: Clindamycin 600 MG/50 ML 600 MG/50 ML IV.SOLN IVPB SCH (10:00)
[2018-05-11] MEDS ORDERED: Bupivacaine/EPI 1:200k 0.5%PF 30 ML VIAL ONE (10:31)
[2018-05-11] MEDS ORDERED: Clindamycin 600 MG/50 ML 600 MG/50 ML IV.SOLN IVPB ONE (10:33)
[2018-05-11] MEDS ORDERED: *HR* PHENYLEPHRINE 1,000 MCG/10 ML SYRINGE IVP ONE (11:22)
[2018-05-11] MEDS ORDERED: *HR* OxyCODONE Immed Rel 5 MG TABLET PO PRN ×2 (11:35→12:55)
[2018-05-11] MEDS ORDERED: Ondansetron 4 MG/2 ML VIAL IVP ONE ×2 (11:35→12:55)
--- NOTE | 2018-05-11 12:31 | Anesthesia Evaluation Post Op ---
Date of Encounter: 05/11/18 Time of Encounter: 12:30 - Vital Signs Vital Signs: Vital Signs/O2 Sat/Glucose, Most Recent Temp Pulse Resp BP Pulse Ox 97.1 F L 74 16 137/69 100 05/11/18 12:11 05/11/18 12:11 05/11/18 12:11 05/11/18 12:11 05/11/18 12:11 - Lungs Lungs: Clear Ascult./Percussion - Airway Airway: Non-obstructed - Cardiovascular Regular Rate, Baseline Rhythm - Mental Status Mental Status: Alert & Oriented, Answers Appropriately - Pain Pain Scale: 0 Pain Scale used: Numeric (1 - 10) - Nausea Vomiting Nausea Vomiting: Not Present - Hydration Hydration: Ice chips Notes: 05/11/18 12:31 naac - Discharge PostOp Status: Transfer Patient to floor
[2018-05-11] MEDS ORDERED: Naloxone 0.4 MG/ML INJ IVP PRN (12:55)
[2018-05-11] MEDS ORDERED: Acetaminophen 325 MG TABLET PO PRN (12:55)
--- NOTE | 2018-05-11 13:14 | Orthopedics Progress Note ---
Date of Encounter: 05/11/18 Time of Encounter: 08:00 - Assessment and Plan (1) Cellulitis Current Visit: Yes Status: Acute Qualifiers: Site of cellulitis: extremity Site of cellulitis of extremity: lower extremity Laterality: left Qualified Code(s): L03.116 - Cellulitis of left lower limb (2) Traumatic hematoma of left knee Current Visit: Yes Status: Acute Qualifiers: Encounter type: subsequent encounter Qualified Code(s): S80.02XD - Contusion of left knee, subsequent encounter Subjective Interval history: No overnight issues. Full body rash present, likely allergic reaction to vancomycin. Erythema of the left lower extremity has diminished but it still present. Swelling and ecchymosis over the left proximal medial tibia is relatively unchanged. There is an area of dusky appearing skin with some breakdown over the proximal medial aspect of the tibia. The diagnosis and treatment options were discussed with the patient. With the lack of improvement in her exam and now area of skin that has broken down and opened over the hematoma, we will plan for open irrigation and debridement of the hematoma of the left leg today. The risks and benefits of the procedure were fully explained in detail, including but not limited to the risk of continued infection, neurovascular injury, continued pain or stiffness, failure of surgery, reinjury, or need for additional surgery, DVT, PE, general risks of anesthesia and loss of limb or life. We also specifically discussed the possibility of skin necrosis due to undermining from the hematoma. No guarantees were given or implied and all questions were answered. The patient understands all the risks and does wish to proceed with written consent. Continue antibiotics per the hospitalist. Appreciate medical management. Objective Vital signs: Vital Signs Temp Pulse Resp BP Pulse Ox 05/11/18 12:41 97.8 F 75 16 138/65 97 05/11/18 12:31 84 16 148/71 100 05/11/18 12:21 84 16 145/80 96 05/11/18 12:11 97.1 F L 74 16 137/69 100 05/11/18 10:44 77 16 140/84 99 05/11/18 08:55 98.2 F 63 14 128/59 98 05/11/18 07:39 97.7 F 75 17 120/65 97 05/11/18 05:17 97.8 F 63 15 128/72 95 05/10/18 19:44 98.8 F 71 15 121/64 93 05/10/18 14:46 98.5 F 62 18 116/53 96 Intake and Output 05/10/18 05/11/18 05/11/18 23:59 07:59 15:59 Intake Total 590 / 590 Output Total 0 / 0 0 / 0 10 / 10 Balance 590 / 590 0 / 0 -10 / -10 Intake: IV Fluids 350 / 350 Levaquin Premix 500mg/100mL 500 100 / 100 mg In 100 ml @ 100 mls/hr IVPB Q24H [facility] Rx#:[id number] Vancocin 1,250 MG In 0.9 % 250 / 250 Sodium Chloride 250 ML @ 166.67 mls/hr IVPB Q24H [facility] Rx#: [id number] Oral 240 / 240 Output: Urine 0 / 0 0 / 0 Estimated Blood Loss Other: Meal Dinner Percent of Meal Consumed 100% # Bowel Movements 0 Weight 86.1 kg Patient Weight 05/11/18 23:59 Weight 86.1 kg - Labs CBC & BMP: 05/11/18 05:38 05/10/18 05:21 Labs: Abnormal lab results RBC 3.13 M/mcL (3.82-4.97) L 05/11/18 05:38 Hgb 9.6 g/dL (11.5-15.4) L 05/11/18 05:38 Hct 29.2 % (35.3-44.9) L 05/11/18 05:38 RDW 14.6 % (11.5-14.5) H 05/11/18 05:38 MPV 9.3 fL (9.4-12.4) L 05/11/18 05:38 ESR 91 mm/hr (0-15) H 05/09/18 12:16 PT 21.9 Seconds (9.4-12.1) H 05/09/18 12:16 Iron 46 mcg/dL (50-170) L 05/11/18 05:38 Ferritin 137 ng/mL (10-120) H 05/11/18 05:38 C-Reactive Protein 27 mg/L (Less than 10) H 05/09/18 12:16 Consult Discharge Plan - Plan Referrals: Cole Joya MD [Primary Care Provider] -
--- NOTE | 2018-05-11 13:33 | Orthopedic Operative Note ---
Date of procedure: 05/11/18 Procedure: Procedure: Left proximal tibia hematoma irrigation and debridement including deep soft tissue Preoperative Diagnosis: Left proximal tibia infected hematoma Postoperative Diagnosis: Same Surgeon: Ronny Medel MD Automotive Worker Foreman: None Anesthesia: General EBL: 20 cc Complications: None Specimen: Aerobic and anaerobic culture left proximal tibia INDICATIONS: This is a 87 year old female who fell 2 weeks ago and sustained an open fracture of the left ring finger middle phalanx and a hematoma over her left chacon and knee. She was being seen by Dr. Chaves for both, an I&D and closed reduction was performed several weeks ago for the left ring finger, the hematoma was initially treated with compressive dressings. One week ago was seen in the office for follow-up and was noted to have some redness over her knee and around the hematoma. She was placed on oral clindamycin and followed up two days ago in the office. At that time she was noted to have worsening of her swelling, with blistering of the skin and redness that progressed from the toes to proximal to the knee. She was then admitted to the hospitalist service for IV antibiotics due to failure of oral outpatient therapy. CT showed hematoma present over the proximal media tibia that had progressed from previous imaging. Attempts were made to aspirate the hematoma but fluid was not able to be obtained due to clotting. The diagnosis and treatment options were discussed with the patient. With the lack of improvement in her exam the decision was made to proceed with open irrigation and debridement of the hematoma of the left leg. The risks and benefits of the procedure were fully explained in detail, including but not limited to the risk of continued infection, neurovascular injury, continued pain or stiffness, failure of surgery , reinjury, or need for additional surgery, DVT, PE, general risks of anesthesia and loss of limb or life. We also specifically discussed the possibility of skin necrosis due to undermining from the hematoma. No guarantees were given or implied and all questions were answered. The patient understood all the risks and consent was obtained. OPERATIVE REPORT: The patient was identified in the holding area. The left lower extremity was marked, the patient was taken to the operating room and placed in the supine position. All bony prominences were well padded. A tourniquet was placed on the left thigh but was not inflated. The anesthesiologist performed successful general anesthetic for the remainder of the case. She was on scheduled antibiotics from the floor. A surgical time out protocol was then performed confirming the patient, site, side and procedure. All were in agreement and we did proceed. There was a scab over the central aspect of the hematoma of the left proximal tibia. This was removed and the underlying hematoma was visible. A longitudinal incision was extended superiorly and inferiorly from the open area. The hematoma was manually decompressed. A significant amount of clotted blood was removed. Any underlying necrotic tissue was debrided with a curette. The skin edges of the open area were sharply excised. There was undermining of the skin in the area of the hematoma. Underyling tissue appeared healthy, and there was no involvement of the knee joint. The wound was then copiously irrigated with 6 L of normal saline. Skin was closed with 3-0 nylon. A sterile compressive dressing was placed. The patient was awoken by anesthesia and taken the PACU in stable condition. There were no complications. Postop plan: Continue with antibiotics as per hospitalist recommendations. Continue compressive dressing and will monitor wound healing. Was there an funeral home assistant present: No Estimated blood loss (cc): 20
[2018-05-11] MEDS ORDERED: predniSONE 20 MG TABLET PO ONE ×2 (14:00)
[2018-05-11] MEDS: Cetirizine HCl 5 MG/5 ML UDC PO SCH ×2 (14:29→20:09)
--- NOTE | 2018-05-11 16:26 | Internal Med Progress Note ---
Hospitalist Progress Note - Encounter Date of Encounter: 05/11/18 Time of Encounter: 08:45 - Subjective Interval History: Patient continues to have urticarial rash all over her skin of her chest phase extremities and her back. She reports that itching has improved after she received medications. She has not noticed any further spread since yesterday evening. Her left leg swelling seems to be improving and is less red today. She continues to have swelling over her left knee joint. She underwent bedside I&D yesterday but not much fluid was able to be evacuated. Scheduled to be taken to the OR today. - Exam Vitals: Temp Pulse Resp BP Pulse Ox 97.4 F L 56 12 132/81 93 05/11/18 14:30 05/11/18 14:30 05/11/18 14:30 05/11/18 14:30 05/11/18 14:30 Exam: General: Patient is alert, no acute distress, oriented x 3 Respiratory: Good respiratory effort. Normal breath sounds. No wheezing or crackles. Cardiovascular: Regular rate and rhythm. s1 and s2 normal No clicks, rubs, gallops, or murmurs. No pedal edema Abdomen: Abdomen is soft, nontender. Bowel sounds are present Musculoskeletal: Left knee swelling still present. Erythema over left lower leg has significantly improved. Swelling has also improved. Skin: Uritcarial rash present on face, chest wall, back and mildly on her upper extremities. Neuro: Alert oriented x 3 normal cranial nerves, no focal deficits - Assessment and Plan (1) Cellulitis Current Visit: Yes Status: Acute Assessment and Plan: Patient with cellulitis involving left lower extremity with possible infected hematoma of the left knee. Patient taken to the OR today and I&D done in the OR. We will follow surgical culture results. Patient has had adverse reaction to antibiotics given yesterday. Unclear if this is still cefepime on vancomycin. We will stop both antibiotics. Place patient on clindamycin instead. Monitor closely while patient is receiving antibiotic to see if she develops any further allergic reaction. (2) Atrial fibrillation Current Visit: Yes Status: Chronic Assessment and Plan: Rate controlled. On anticoagulation with Coumadin but this has been held for procedure today. As patient has an infected left knee hematoma and also is having anemia. Will resume Coumadin tomorrow. Patient is receiving subcutaneous heparin for now. Patient agrees with this treatment plan. (3) Coronary artery disease Current Visit: Yes Status: Chronic Assessment and Plan: Continue home medications. No chest pain at this time. (4) Knee swelling Current Visit: Yes Status: Acute Assessment and Plan: From infected traumatic hematoma. Underwent I&D today. (5) Displaced fracture of phalanx of left ring finger Current Visit: Yes Status: Acute Assessment and Plan: Supportive care. Orthopedics will follow after discharge (6) Anemia Current Visit: Yes Status: Acute Assessment and Plan: Hemoglobin 9.6 today. Will monitor closely. Holding Coumadin as patient undergoing procedure and patient also has left knee hematoma. Will resume Coumadin tomorrow. (7) Congestive heart failure Current Visit: Yes Status: Chronic Assessment and Plan: Continue Lasix. (8) Traumatic hematoma of left knee Current Visit: Yes Status: Acute Assessment and Plan: Orthopedics following. I&D done today. - Time Spent with Patient Total time spent is greater than 50% in coordination of care (as documented) at patient's floor/unit and/or counseling patient: Internal Medicine: Result - Labs CBC & Chem 7: 05/11/18 05:38 05/10/18 05:21 Labs: Short CBC 05/11/18 Range/Units 05:38 WBC 7.8 (4.3-11.1) K/mcL Hgb 9.6 L (11.5-15.4) g/dL Hct 29.2 L (35.3-44.9) % Plt Count 318 (140-400) K/mcL Neutrophils # 6.5 (1.6-8.9) K/mcL - ABG Interpretation ABG results: PT/INR, D-dimer PT 21.9 Seconds (9.4-12.1) H 05/09/18 12:16 Consult Discharge Plan - Plan Referrals: Cole Joya MD [Primary Care Provider] - (1) Cellulitis Qualifiers: Site of cellulitis: extremity Site of cellulitis of extremity: lower extremity Laterality: left Qualified Code(s): L03.116 - Cellulitis of left lower limb (2) Atrial fibrillation Qualifiers: Atrial fibrillation type: chronic Qualified Code(s): I48.2 - Chronic atrial fibrillation (3) Coronary artery disease Qualifiers: Coronary Disease-Associated Artery/Lesion type: [place] artery [place] vs. transplanted heart: [place] heart Associated angina: without angina Qualified Code(s): I25.10 - Atherosclerotic heart disease of [place] coronary artery without angina pectoris (5) Displaced fracture of phalanx of left ring finger Qualifiers: Encounter type: initial encounter Fracture type: open Phalanx: middle Qualified Code(s): S62.625B - Displaced fracture of middle phalanx of left ring finger, initial encounter for open fracture (6) Anemia Qualifiers: Anemia type: other cause Other causes of anemia: acute posthemorrhagic Qualified Code(s): D62 - Acute posthemorrhagic anemia (7) Congestive heart failure Qualifiers: Heart failure type: unspecified Heart failure chronicity: unspecified Qualified Code(s): I50.9 - Heart failure, unspecified (8) Traumatic hematoma of left knee Qualifiers: Encounter type: subsequent encounter Qualified Code(s): S80.02XD - Contusion of left knee, subsequent encounter
[2018-05-11 17:59] LABS: INR 1.4; Prothrombin Time 15.7 Seconds (9.4-12.1)
[2018-05-11] MEDS ORDERED: *HR* Heparin 5,000 UNIT/ML VIAL SQ SCH (18:00)
[2018-05-11] MEDS ORDERED: Warfarin perPT PO PRN (18:12)
[2018-05-11] MEDS: Clindamycin 600 MG/50 ML 600 MG/50 ML IV.SOLN IVPB SCH ×2 (18:24→23:51)
[2018-05-11] MEDS: *HR* Digoxin 0.125 MG TABLET PO SCH (19:51)
[2018-05-11] MEDS: Lactobacillus 1 EACH CAP.SPRINK PO SCH ×2 (19:51→20:10)
[2018-05-11] MEDS: Furosemide 20 MG TABLET PO SCH (19:51)
[2018-05-11] MEDS: Losartan/HCTZ 50-12.5 TABLET PO SCH (19:51)
[2018-05-11] MEDS: (Vit A/C/E Ac/Znox/Cupric Oxide [Eye Vitamin-Minerals) PO SCH (19:51)
[2018-05-11] MEDS ORDERED: *HR* Warfarin 3 MG TABLET PO ONE (20:45)
[2018-05-12] MEDS: *HR* Enoxaparin 100 MG/ML SYRINGE SQ SCH ×2 (06:06→17:24)
[2018-05-12] MEDS: traMADol 50 MG TABLET PO PRN ×2 (06:55→21:09)
[2018-05-12 07:41] LABS: Basophils % 0.2 %; Eosinophils # 0.1 K/mcL (0.0-0.6); Eosinophils % 0.4 %; Hematocrit 28.7 % (35.3-44.9); Hemoglobin 9.4 g/dL (11.5-15.4); Immature Granulocytes % 0.5 % (0-4); Lymphocytes # 1.1 K/mcL (0.6-4.6); Mean Corpuscular HGB Conc 32.8 g/dL (31.6-35.5); Mean Corpuscular Hemoglobin 30.6 pg (28.0-33.3); Mean Corpuscular Volume 93.5 fL (83.0-100.0); Mean Platelet Volume 9.4 fL (9.4-12.4); Monocytes # 0.9 K/mcL (0.0-1.3); Monocytes % 7.8 %; Neutrophils # 9.8 K/mcL (1.6-8.9); Platelet Count 337 K/mcL (140-400); Red Blood Count 3.07 M/mcL (3.82-4.97); Red Cell Distribution Width 14.6 % (11.5-14.5); Segmented Neutrophils % 82.1 %
[2018-05-12 07:49] LABS: INR 1.5; Prothrombin Time 17.1 Seconds (9.4-12.1)
[2018-05-12 08:01] LABS: BUN/Creatinine Ratio 27 (6-26); Blood Urea Nitrogen 22 mg/dL (8-23); Calcium 8.9 mg/dL (8.6-10.3); Carbon Dioxide 25 mEq/L (23-29); Chloride 106 mEq/L (98-107); Glucose 129 mg/dL (70-105); Osmolality,Calculated 295 (280-300); Potassium 3.8 mEq/L (3.5-5.1); Sodium 140 mEq/L (136-145); eGFR For Non-African Americans > 60 (> 60)
[2018-05-12] MEDS ORDERED: predniSONE 20 MG TABLET PO ONE (09:00)
[2018-05-12] MEDS ORDERED: Multivit/Ca/Min/Fe/FA 1 TAB TABLET PO SCH (09:00)
[2018-05-12] MEDS ORDERED: Famotidine 20 MG/2 ML VIAL IVP SCH (09:00)
--- NOTE | 2018-05-12 09:15 | Internal Med Progress Note ---
Hospitalist Progress Note - Encounter Date of Encounter: 05/12/18 Time of Encounter: 09:13 - Subjective Interval History: Patient complains of itching on her back which was a bit worse overnight. She denies any fevers or chills. Her leg erythema is significantly improved. She is doing well overall. - Exam Vitals: Temp Pulse Resp BP Pulse Ox 97.6 F 64 15 115/62 95 05/12/18 06:17 05/12/18 06:17 05/12/18 06:17 05/12/18 06:17 05/12/18 06:17 Exam: General: Patient is alert, no acute distress, oriented x 3 Respiratory: Good respiratory effort. Normal breath sounds. No wheezing or crackles. Cardiovascular: Irregularly irregular rhythm. s1 and s2 normal No clicks, rubs , gallops, or murmurs. No pedal edema Abdomen: Abdomen is soft, nontender. Bowel sounds are present Musculoskeletal: Erythema over the left lower extremity has significantly improved. Left knee swelling has also improved. No tenderness or warmth to touch. Skin: Urticarial rash stable. No further spread so far.. Neuro: Alert oriented x 3 normal cranial nerves, no focal deficits - Assessment and Plan (1) Cellulitis Current Visit: Yes Status: Acute Assessment and Plan: Resolving cellulitis of the left lower extremity. Status post I&D of the left knee hematoma. Cultures are so far negative. Will complete 7-10 day course of antibiotics if cultures remain negative. Plan on discharge tomorrow if cultures are negative. Leukocytosis worse this morning at 11.9. Likely reactive due to procedure done yesterday. Will monitor. (2) Atrial fibrillation Current Visit: Yes Status: Chronic Assessment and Plan: Rate controlled. Restart her anticoagulation with Coumadin. We will bridge with Lovenox for now. (3) Coronary artery disease Current Visit: Yes Status: Chronic Assessment and Plan: Continue home medications. No chest pain. (4) Knee swelling Current Visit: Yes Status: Acute Assessment and Plan: Due to traumatic hematoma. Status post I&D done yesterday. (5) Displaced fracture of phalanx of left ring finger Current Visit: Yes Status: Acute Assessment and Plan: Supportive care. Follow up with orthopedics after discharge (6) Anemia Current Visit: Yes Status: Chronic Assessment and Plan: Stable. Hemoglobin 9.4. We will continue to monitor as patient is receiving anticoagulation. (7) Congestive heart failure Current Visit: Yes Status: Chronic (8) Traumatic hematoma of left knee Current Visit: Yes Status: Acute - Time Spent with Patient Total time spent is greater than 50% in coordination of care (as documented) at patient's floor/unit and/or counseling patient: Internal Medicine: Result - Labs CBC & Chem 7: 05/12/18 06:50 05/12/18 06:50 Labs: Short CBC 05/12/18 Range/Units 06:50 WBC 11.9 H D (4.3-11.1) K/mcL Hgb 9.4 L (11.5-15.4) g/dL Hct 28.7 L (35.3-44.9) % Plt Count 337 (140-400) K/mcL Neutrophils # 9.8 H (1.6-8.9) K/mcL BMP 05/12/18 06:50 Sodium 140 Potassium 3.8 Chloride 106 Carbon Dioxide 25 BUN 22 Creatinine 0.83 Glucose 129 H Calcium 8.9 - ABG Interpretation ABG results: PT/INR, D-dimer PT 17.1 Seconds (9.4-12.1) H 05/12/18 06:50 Consult Discharge Plan - Plan Referrals: Cole Joya MD [Primary Care Provider] - (1) Cellulitis Qualifiers: Site of cellulitis: extremity Site of cellulitis of extremity: lower extremity Laterality: left Qualified Code(s): L03.116 - Cellulitis of left lower limb (2) Atrial fibrillation Qualifiers: Atrial fibrillation type: chronic Qualified Code(s): I48.2 - Chronic atrial fibrillation (3) Coronary artery disease Qualifiers: Coronary Disease-Associated Artery/Lesion type: [place] artery [place] vs. transplanted heart: [place] heart Associated angina: without angina Qualified Code(s): I25.10 - Atherosclerotic heart disease of [place] coronary artery without angina pectoris (5) Displaced fracture of phalanx of left ring finger Qualifiers: Encounter type: initial encounter Fracture type: open Phalanx: middle Qualified Code(s): S62.625B - Displaced fracture of middle phalanx of left ring finger, initial encounter for open fracture (6) Anemia Qualifiers: Anemia type: other cause Other causes of anemia: acute posthemorrhagic Qualified Code(s): D62 - Acute posthemorrhagic anemia (7) Congestive heart failure Qualifiers: Heart failure type: unspecified Heart failure chronicity: unspecified Qualified Code(s): I50.9 - Heart failure, unspecified (8) Traumatic hematoma of left knee Qualifiers: Encounter type: subsequent encounter Qualified Code(s): S80.02XD - Contusion of left knee, subsequent encounter
[2018-05-12] MEDS: Multivit/Ca/Min/Fe/FA 1 TAB TABLET PO SCH (10:25)
[2018-05-12] MEDS: Lactobacillus 1 EACH CAP.SPRINK PO SCH ×2 (10:25→20:57)
[2018-05-12] MEDS: Clindamycin 600 MG/50 ML 600 MG/50 ML IV.SOLN IVPB SCH ×3 (10:25→23:44)
[2018-05-12] MEDS: Losartan/HCTZ 50-12.5 TABLET PO SCH ×2 (10:26→12:19)
[2018-05-12] MEDS: Furosemide 20 MG TABLET PO SCH (10:26)
[2018-05-12] MEDS: Metoprolol XL (24 HR) Succ 50 MG TAB.ER.24H PO SCH ×2 (10:26→12:19)
[2018-05-12] MEDS: Famotidine 20 MG/2 ML VIAL IVP SCH (10:26)
[2018-05-12] MEDS: *HR* Digoxin 0.125 MG TABLET PO SCH (10:26)
[2018-05-12] MEDS: Cetirizine HCl 5 MG/5 ML UDC PO SCH ×2 (10:29→20:57)
--- NOTE | 2018-05-12 15:49 | Orthopedics Progress Note ---
Date of Encounter: 05/12/18 Time of Encounter: 15:42 Subjective Principal diagnosis: Left knee infected hematoma Interval history: The patient is doing much better today, still has some itching from all over her body Rash over most of her body Left hand: The patient will be splint for hygiene, the wound is intact with Steri-Strips in place, no deformity. A new dressing and splint was replaced Left knee: Dressings removed, decreased swelling, still draining sanguinous fluid, skin is in poor condition on the anterior knee, good motion of the knee, decreased cellulitic erythema down the left leg Cultures: Gram-negative rods Assessment: 1) postoperative day #1 status post decompression of left knee infected hematoma, doing well 2) rash over her body possibly due to antibiotics 3) Left ring finger open P2 fracture Plan: Continue IV antibiotics and adjust once the sensitivitiesc are back. Daily dressing changes Monitor rash in response to antibiotics Continue splinting of left ring finger Objective Vital signs: Vital Signs Temp Pulse Resp BP Pulse Ox 05/12/18 11:57 97.9 F 83 15 162/80 100 05/12/18 10:32 97.8 F 73 16 110/57 98 05/12/18 06:17 97.6 F 64 15 115/62 95 05/12/18 03:52 98.4 F 79 15 97/50 95 05/11/18 23:17 98.5 F 72 16 113/56 94 05/11/18 19:45 97.5 F L 85 16 112/47 98 Intake and Output 05/11/18 05/12/18 05/12/18 23:59 07:59 15:59 Intake Total 650 / 650 50 / 50 170 / 170 Output Total 0 / 0 0 / 0 Balance 650 / 650 50 / 50 170 / 170 Intake: IV Fluids 50 / 50 50 / 50 50 / 50 Cleocin Premix 600 MG/50 ML 600 50 / 50 50 / 50 50 / 50 mg In 50 ml @ 50 mls/hr IVPB Q8HR [facility] Rx#:[id number] Oral 600 / 600 0 / 0 120 / 120 Output: Urine 0 / 0 0 / 0 Other: Stool Size Large Stool Consistency formed Stool Color Brown # Voids 1 1 Weight 84.4 kg Patient Weight 05/12/18 23:59 Weight 84.4 kg - Labs CBC & BMP: 05/12/18 06:50 05/12/18 06:50 Labs: Abnormal lab results WBC 11.9 K/mcL (4.3-11.1) H D 05/12/18 06:50 RBC 3.07 M/mcL (3.82-4.97) L 05/12/18 06:50 Hgb 9.4 g/dL (11.5-15.4) L 05/12/18 06:50 Hct 28.7 % (35.3-44.9) L 05/12/18 06:50 RDW 14.6 % (11.5-14.5) H 05/12/18 06:50 Neutrophils # 9.8 K/mcL (1.6-8.9) H 05/12/18 06:50 ESR 91 mm/hr (0-15) H 05/09/18 12:16 PT 17.1 Seconds (9.4-12.1) H 05/12/18 06:50 BUN/Creatinine Ratio 27 (6-26) H 05/12/18 06:50 Glucose 129 mg/dL (70-105) H 05/12/18 06:50 Iron 46 mcg/dL (50-170) L 05/11/18 05:38 Ferritin 137 ng/mL (10-120) H 05/11/18 05:38 C-Reactive Protein 27 mg/L (Less than 10) H 05/09/18 12:16 Consult Discharge Plan - Plan Referrals: Cole Joya MD [Primary Care Provider] -
[2018-05-12] MEDS ORDERED: *HR* Warfarin 3 MG TABLET PO ONE (18:00)
[2018-05-12] MEDS: Levofloxacin 750 MG/150 ML 750 MG/150 ML BAG IVPB SCH (20:57)
[2018-05-13 03:37] LABS: Basophils % 0.1 %; Eosinophils # 0.3 K/mcL (0.0-0.6); Eosinophils % 1.9 %; Hematocrit 27.3 % (35.3-44.9); Hemoglobin 8.9 g/dL (11.5-15.4); Immature Granulocytes % 0.6 % (0-4); Lymphocytes # 1.3 K/mcL (0.6-4.6); Lymphocytes % 9.2 %; Mean Corpuscular HGB Conc 32.6 g/dL (31.6-35.5); Mean Corpuscular Hemoglobin 30.6 pg (28.0-33.3); Mean Corpuscular Volume 93.8 fL (83.0-100.0); Mean Platelet Volume 9.5 fL (9.4-12.4); Monocytes # 1.1 K/mcL (0.0-1.3); Neutrophils # 11.3 K/mcL (1.6-8.9); Platelet Count 352 K/mcL (140-400); Red Blood Count 2.91 M/mcL (3.82-4.97); Red Cell Distribution Width 14.7 % (11.5-14.5); Segmented Neutrophils % 80.2 %
[2018-05-13 03:46] LABS: INR 2.2; Prothrombin Time 24.4 Seconds (9.4-12.1)
[2018-05-13] MEDS: traMADol 50 MG TABLET PO PRN (05:06)
[2018-05-13] MEDS: *HR* Enoxaparin 100 MG/ML SYRINGE SQ SCH (05:06)
[2018-05-13] MEDS: Metoprolol XL (24 HR) Succ 50 MG TAB.ER.24H PO SCH (08:47)
[2018-05-13] MEDS: Furosemide 20 MG TABLET PO SCH (08:47)
[2018-05-13] MEDS: Lactobacillus 1 EACH CAP.SPRINK PO SCH (08:47)
[2018-05-13] MEDS: Losartan/HCTZ 50-12.5 TABLET PO SCH (08:47)
[2018-05-13] MEDS: *HR* Digoxin 0.125 MG TABLET PO SCH (08:47)
[2018-05-13] MEDS: Multivit/Ca/Min/Fe/FA 1 TAB TABLET PO SCH (08:48)
[2018-05-13] MEDS: Famotidine 20 MG/2 ML VIAL IVP SCH (08:48)
[2018-05-13] MEDS: Clindamycin 600 MG/50 ML 600 MG/50 ML IV.SOLN IVPB SCH (08:56)
[2018-05-13] MEDS ORDERED: predniSONE 10 MG TABLET PO ONE (09:00)
[2018-05-13] MEDS: Levofloxacin 750 MG/150 ML 750 MG/150 ML BAG IVPB SCH (09:02)
[2018-05-13] MEDS: Cetirizine HCl 5 MG/5 ML UDC PO SCH (09:05)
[2018-05-13 14:49] VITALS: BP 138/68
--- NOTE | 2018-05-13 15:22 | Discharge Summary ---
- NOTES TO OUTPATIENT PROVIDER Notes to Outpatient Provider: Patient was hospitalized here with cellulitis involving the left lower extremity along with swelling over her left knee. She had a traumatic hematoma diagnosed earlier this month. She was being seen by orthopedics as outpatient who sent her to the hospital for admission. She was treated for cellulitis with IV antibiotics. She was initially started on cefepime and vancomycin. However she developed severe allergy reaction with urticaria all over her body. As such both of these antibiotics were stopped and allergy medicine consulted. She has been prescribed steroids per allergy recommendations. She underwent I&D of her left knee hematoma. Surgical culture is growing Citrobacter. This is sensitive to quinolones and patient has received Levaquin here without any allergies. As such she will be discharged on this medication. She will follow up with orthopedics next week for further management. Orders not resulted at time of discharge: Pending orders 05/11/18 11:31 Culture,Anaerobic [RM] Routine 05/14/18 04:00 INR/PT [Prothrombin Time INR] [COAG] AM 0400 Date of Encounter: 05/13/18 Time of Encounter: 15:23 - Discharge Diagnosis (1) Cellulitis Priority: Primary Status: Acute Qualifiers: Site of cellulitis: extremity Site of cellulitis of extremity: lower extremity Laterality: left Qualified Code(s): L03.116 - Cellulitis of left lower limb (2) Traumatic hematoma of left knee Priority: Secondary Status: Acute Qualifiers: Encounter type: subsequent encounter Qualified Code(s): S80.02XD - Contusion of left knee, subsequent encounter (3) Atrial fibrillation Priority: Secondary Status: Chronic Qualifiers: Atrial fibrillation type: chronic Qualified Code(s): I48.2 - Chronic atrial fibrillation (4) Coronary artery disease Priority: Secondary Status: Chronic Qualifiers: Coronary Disease-Associated Artery/Lesion type: w[place]ot artery [place] vs. transplanted heart: w[place]ot heart Associated angina: without angina Qualified Code(s): I25.10 - Atherosclerotic heart disease of [place] coronary artery without angina pectoris (5) Knee swelling Priority: Secondary Status: Acute (6) Displaced fracture of phalanx of left ring finger Priority: Secondary Status: Acute Qualifiers: Encounter type: initial encounter Fracture type: open Phalanx: middle Qualified Code(s): S62.625B - Displaced fracture of middle phalanx of left ring finger, initial encounter for open fracture (7) Anemia Priority: Secondary Status: Chronic Qualifiers: Anemia type: other cause Other causes of anemia: acute posthemorrhagic Qualified Code(s): D62 - Acute posthemorrhagic anemia (8) Congestive heart failure Priority: Secondary Status: Chronic Qualifiers: Heart failure type: unspecified Heart failure chronicity: unspecified Qualified Code(s): I50.9 - Heart failure, unspecified Hospital course: Ms. Granados is a 87 year old female Patient with history of atrial fibrillation on Coumadin who was hospitalized here with cellulitis involving the left lower extremity along with swelling over her left knee. She had a traumatic hematoma diagnosed earlier this month. She was being seen by orthopedics as outpatient who sent her to the hospital for admission. She was treated for cellulitis with IV antibiotics. She was initially started on cefepime and vancomycin. However she developed severe allergy reaction with urticaria all over her body. As such both of these antibiotics were stopped and allergy medicine consulted. She has been prescribed steroids per allergy recommendations. She underwent I&D of her left knee hematoma. Surgical culture is growing Citrobacter. This is sensitive to quinolones and patient has received Levaquin here without any allergies. As such she will be discharged on this medication. She will follow up with orthopedics next week for further management. Discharge discussed with: patient, nurse, garden consultant - Time Spent with Patient Total time spent providing and/or coordinating discharge services: Greater than 30 minutes (40 min) - Discharge Medications Prescriptions: Cetirizine HCl 10 mg PO DAILY #20 tablet Famotidine [Pepcid] 20 mg PO BID #30 tablet Lactobacillus [Culturelle] 1 each PO BID #30 cap.sprink levoFLOXacin [Levofloxacin] 750 mg PO DAILY #8 tablet predniSONE [PredniSONE] 10 mg PO DAILY 6 Days tablet Home Medications: Digoxin [Lanoxin] 0.125 mg PO DAILY 08/22/16 [History] Furosemide [Lasix] 20 mg PO DAILY 08/22/16 [History] Losartan/HCTZ [Hyzaar 50-12.5 Tablet] 1 tab PO DAILY 08/22/16 [History] Metoprolol XL (24 HR) Succ [Toprol Xl] 150 mg PO DAILY 08/22/16 [History] Potassium Chloride [Klor-Con 10] 10 meq PO DAILY 08/22/16 [History] Tramadol HCl [Ultram] 50 mg PO BID PRN 08/22/16 [History] Acetaminophen [Tylenol] 1,000 mg PO Q6HR PRN #0 tablet 09/05/16 [Rx] Vit A/C/E AC/Znox/Cupric Oxide [Eye Vitamin-Minerals Tablet] 1 each PO DAILY [History] Clindamycin [Cleocin] 300 mg PO TID 7 Days capsule 04/26/18 [Rx] Cetirizine HCl 10 mg PO DAILY #20 tablet 05/13/18 [Rx] Famotidine [Pepcid] 20 mg PO BID #30 tablet 05/13/18 [Rx] Lactobacillus [Culturelle] 1 each PO BID #30 cap.sprink 05/13/18 [Rx] Warfarin Sodium [Coumadin] 3 mg PO 1800 #0 05/13/18 [Rx] levoFLOXacin [Levofloxacin] 750 mg PO DAILY #8 tablet 05/13/18 [Rx] predniSONE [PredniSONE] 10 mg PO DAILY 6 Days tablet 05/13/18 [Rx] Allergies/Adverse Reactions: 3 Allergy/AdvReac Type Severity Reaction Status Date / Time cefepime Allergy Rash Verified 05/11/18 09:33 vancomycin Allergy Rash Verified 05/11/18 09:33 Penicillins AdvReac Rash Verified 05/09/18 13:57 spironolactone AdvReac Rash Verified 05/09/18 13:57 [From Aldactone] Date of admission: 05/09/18 16:30 Primary care physician: Cole Joya MD Consults: 05/10/18 16:24 Consult to Allergy/Immunology [CONS] Routine Consulting Provider: Allergy Mirna Reason for Consult: Worsening urticarial rash Time Notified: 16:25 Call Completed: Yes 05/11/18 14:13 Consult to Invasive Line Access Team [CONS] Routine Reason for Consult: unable to obtain vascular access Line Type: EPIV Discharging clinician: Amie Villalta Anticipated date of discharge: 05/13/18 - Constitutional Vitals: Temp Pulse Resp BP Pulse Ox 97.7 F 64 16 138/68 99 05/13/18 14:48 05/13/18 14:48 05/13/18 14:48 05/13/18 14:48 05/13/18 14:48 General appearance: Present: cooperative, A&O X 3, answers questions appropriately Exam: General: Patient is alert, no acute distress, oriented x 3 Respiratory: Good respiratory effort. Normal breath sounds. No wheezing or crackles. Cardiovascular: Regular rate and rhythm. s1 and s2 normal No clicks, rubs, gallops, or murmurs. No pedal edema Abdomen: Abdomen is soft, nontender. Bowel sounds are present Musculoskeletal: Left lower extremity cellulitis has resolved. Swelling noted on left knee. Currently bandaged. Skin: Urticaria present all over her back chest wall and extremities. Appears to be less confluent. Neuro: Alert oriented x 3 normal cranial nerves, no focal deficits - Patient Status Disposition: Home, Self-Care Condition: Good Functional capacity at discharge: independent ambulation Overall status at discharge: patient is progressing back to baseline - Discharge Instructions Instructions: Heart Failure (DC), Atrial Fibrillation (DC), Cellulitis (DC), Acute Wound Care (DC), Anemia (GEN) Follow Up With: Cole Joya MD [Primary Care Provider] - (In 1-2 weeks) Idris Chaves MD [Partnered Physician] - (Within one week) Mecca Caraballo MD [Partnered Physician] - (In 2-3 weeks for allergy testing) - Diet and Activity Activity: increase activity as tolerated Diet: diabetic diet, low salt diet
[2018-05-13] MEDS ORDERED: Warfarin 2.5 MG, Warfarin 2 MG PO ONE (18:00)
[2018-05-13] MEDS ORDERED: Levofloxacin 750 MG/150 ML 750 MG/150 ML BAG IVPB SCH (21:00)
[2018-05-14] MEDS ORDERED: predniSONE 20 MG TABLET PO ONE (09:00)
[2018-05-15] MEDS ORDERED: predniSONE 10 MG TABLET PO ONE (09:00)
== END 2018-05-13 17:00 | disposition home or self-care (01) | DRG 603 ==
LOC: 3ANU 11:38 → EMEROOARM 11:38 → SUATTDRO 15:19 → 3ANU 15:45
PROVIDERS: ADMIT Internal Medicine; ATTEND Internal Medicine